=== PATIENT | female | born 1945 | race Hispanic/Latino ===

== ENCOUNTER → 2018-03-04 | Outpatient (CLI) | payer OTHER, MEDICARE ==
[~2018-03-04] MED LIST: ASPI-555 PO; BISA5TAB12 PO; LOVA40TA2 PO; NAPR375T6 PO
== END | disposition home or self-care (01) ==
LOC: RAH 08:48
PROVIDERS: ATTEND Internal Medicine Gastroenterology
DX: R10.11 Right upper quadrant pain (principal); I25.10 Atherosclerotic heart disease of native coronary artery without angina pectoris
CPT/HCPCS: 76700

== ENCOUNTER → 2020-09-10 | Outpatient (CLI) | payer OTHER, MEDICARE ==
[~2020-09-10] MED LIST changes: -ASPI-555 PO; +ASPI-556 PO
== END | disposition home or self-care (01) ==
LOC: SHCH 08:03
PROVIDERS: ATTEND Internal Medicine Cardiovascular Disease
DX: R94.31 Abnormal electrocardiogram [ECG] [EKG] (principal)
CPT/HCPCS: 93306; 93356

== ENCOUNTER → 2020-09-12 | Outpatient (CLI) | payer OTHER, MEDICARE ==
[~2020-09-12] VITALS: Ht 160 cm; Wt 74.4 kg
[~2020-09-12] MED LIST changes: +REGADENOSON 0.4 MG/5 ML PF SYG IVP SCH
== END | disposition home or self-care (01) ==
LOC: SHCH 07:58
PROVIDERS: ATTEND Internal Medicine Cardiovascular Disease
DX: R94.31 Abnormal electrocardiogram [ECG] [EKG] (principal)
CPT/HCPCS: 78452; 93017; 96374; A9500 ×2

== ENCOUNTER → 2023-02-01 | Outpatient (CLI) | payer OTHER, MEDICARE ==
[~2023-02-01] MED LIST changes: +BISA-151 PO; -BISA5TAB12 PO; -REGADENOSON 0.4 MG/5 ML PF SYG IVP SCH
[2023-02-01 12:47] LABS: CREATININE 0.8 mg/dL (0.5-1.5); MAGNESIUM 2.2 mg/dL (1.80-2.40); POTASSIUM 4.2 mmol/L (3.5-5.1)
== END | disposition home or self-care (01) ==
LOC: LAB 09:09
PROVIDERS: ATTEND Physician Assistant
DX: I49.3 Ventricular premature depolarization (principal); R00.2 Palpitations
CPT/HCPCS: 36415; 80048; 83735

== ENCOUNTER → 2023-03-10 | Outpatient (CLI) | payer OTHER, MEDICARE | END | disposition home or self-care (01) | LOC: RAH 07:09 | PROVIDERS: ATTEND Family Medicine | DX: K80.20 Calculus of gallbladder without cholecystitis without obstruction (principal); R10.31 Right lower quadrant pain | CPT/HCPCS: 76700; 76856 ==